=== PATIENT | female | born 1970 | race Hispanic/Latino ===

== ENCOUNTER 2017-12-21 13:17 | Outpatient (CLI) | payer OTHER ==
--- NOTE | 2017-12-21 14:46 | ULT ---
ULTRASOUND WITH DOPPLER DUPLEX VENOUS RIGHT LOWER EXTREMITY CPT: 78314 ICD-10-PCS: B54D HISTORY: Pain, edema. TECHNIQUE: Color flow Doppler, spectral waveform analysis of pulsed Doppler, and bolanos-scale imaging with jelani keisha and augmentation, were used to evaluate the right common femoral, femoral, popliteal, posterior tibial, and superficial femoral, veins; and the proximal portions of the profunda femoral and greater saphenous, veins. FINDINGS: Appropriate compressibility and flow within the imaged deep vein system of the right lower extremity. IMPRESSION: No DVT. POS: [facility]
== END 2017-12-21 13:18 | disposition home or self-care (01) ==
LOC: SCSULT 13:17
PROVIDERS: ATTEND Internal Medicine
DX: I83.90 Asymptomatic varicose veins of unspecified lower extremity (principal)

== ENCOUNTER 2018-01-19 07:53 | Outpatient (CLI) | payer OTHER | END 2018-01-19 07:54 | disposition home or self-care (01) | LOC: BICMAMMO 07:53 | PROVIDERS: ATTEND Internal Medicine | DX: Z12.31 Encounter for screening mammogram for malignant neoplasm of breast (principal) | CPT/HCPCS: 77063; 77067 ==